=== PATIENT | male | born 1980 | race Two or more races ===

== ENCOUNTER 2016-10-24 10:12 | Emergency (ER) | payer SELFPAY ==
[2016-10-24] MEDS ORDERED: PROPARACAINE 0.5% 15 ML OPHT DROP ONE (10:28)
[2016-10-24] MEDS ORDERED: PROPARACAINE 0.5% 15 ML OPHT DROP RTEYE ONE (10:32)
[2016-10-24 10:33] VITALS: RESP 18; O2SAT 97
--- NOTE | 2016-10-24 11:25 | UCPHY ---
H & P Time Seen by Provider: 10/24/16 10:25 Patient Type: New HPI/ROS: CHIEF COMPLAINT: Chemical exposure to right eye HPI: The patient is a 36-year-old male no significant past medical history. Approximately 48 hours ago, the patient was working on his car using a chemical called NUBRITE when several drops flew into his right eye. He immediately flushed his right eye with water. Since that time he has experienced increasing redness, pain and now a green discharge from the right eye. He denies any vision changes. REVIEW OF SYSTEMS: Aside from elements discussed in the HPI, a comprehensive 10-point review of systems was reviewed and is negative. PMH: None significant. SOCIAL HISTORY: Denies alcohol or drug abuse. FAMILY HISTORY: Reviewed, noncontributory PHYSICAL EXAM: General:Patient is alert, in no acute distress. ENT: Right eye: Diffuse conjunctival erythema is present with mild greenish discharge. Anterior chambers clear. Pupil is round and react to light. No obvious corneal defect. Neuro: Oriented x3. Normal motor function. Normal sensory function. Smoking Status: Current some day smoker Constitutional: Initial Vital Signs Temperature (C) 36.7 C 10/24/16 10:30 Heart Rate 74 10/24/16 10:30 Respiratory Rate 18 10/24/16 10:30 Blood Pressure 117/84 H 10/24/16 10:30 O2 Sat (%) 97 10/24/16 10:30 O2 Delivery Mode Room Air Allergies/Adverse Reactions: No Known Allergies Allergy (Unverified 10/24/16 10:30) Home Medications: Medication Instructions Recorded Hydrocodone/APAP 5/325 [[place] 1 - 2 tab PO Q4H PRN #10 tab 10/24/16 5/325 (RX)] Ketorolac 0.5% [Acular 0.5% Opht 1 drops RTEYE QID #7 opht.btl 10/24/16 Drops (*)] MDM/Departure - MDM Medications Given: Discontinued Medications Proparacaine HCl (Alcaine 0.5%) 1 drops RTEYE ONCE ONE Stop: 10/24/16 10:33 Last Admin: 10/24/16 10:36 Dose: 1 drops ED Course/Re-evaluation: This patient presents with chemical injury to his right eye, of which the primary ingredient is sodium hydroxide. PH here in the affected eye is approximately 7, so I do not think that further irrigation as necessary, particularly since the injury is more than 48 hours old. I consulted Ophthalmology who recommends nonsteroidal anti-inflammatory eyedrops and will follow the patient closely on Wednesday. The patient is comfortable with this plan. - Depart Disposition: Home, Routine, Self-Care Clinical Impression: Chemical conjunctivitis of right eye Condition: Good Instructions: Chemical Eye Adams (ED) Additional Instructions: Follow-up with Dr. Doan from ophthalmology on Wednesday. Call his office ) for an appointment and say [place] [facility] [place] that Dr. Mcmillan was consulted. Return to the ER or urgent care for severe pain, fever, hernandez in vision. Prescriptions: Hydrocodone/APAP 5/325 [[place] 5/325 (RX)] 1 - 2 tab PO Q4H PRN #10 tab PRN Reason: Pain, Moderate Ketorolac 0.5% [Acular 0.5% Opht Drops (*)] 1 drops RTEYE QID #7 opht.btl Referrals: NONE *PRIMARY CARE P,. [Primary Care Provider] - As per Instructions Pancho Doan MD [Medical Doctor] - As per Instructions - PQRS PQRS Measurement: 134: Depression screening and followup, PRIME MD-PHQ2 (12 years and older) Over the last 2 weeks, how often have you been bothered by any of the following problems? 1. Feeling down, depressed, or hopeless? 2. Little interest or pleasure in doing things? Patient answered no to both 1 and 2 130: Documentation of medications. Reviewed all patient medications, doses, route and frequency. 226: Do you smoke? No. 51: 18 years old and older with diagnosis of COPD, spirometry performance. Spirometry not performed; equipment not available. Patient has no history of COPD 52: 18 years old and older with COPD and symptoms of COPD or FEV1<60% predicted prescribed a B Agonist. Spirometry not performed; equipment not available.
[2016-10-24 11:40] VITALS: BP 137/87; PULSE 66; TEMP 98.2
== END 2016-10-24 11:34 | disposition home or self-care (01) ==
LOC: CED 10:12
DX: H10.211 Acute toxic conjunctivitis, right eye (principal); F17.200 Nicotine dependence, unspecified, uncomplicated
CPT/HCPCS: 99203-PO; G0463-PO